=== PATIENT | male | born 1950 | race Caucasian/White ===

== ENCOUNTER 2017-08-25 04:24 | Emergency (ER) | payer BC, OTHER ==
--- NOTE | 2017-08-25 04:40 | PDOC ---
History of Present Illness - General Stated Complaint: CHEST PAIN Time Seen by Provider: 08/25/17 04:40 History Source: Patient Exam Limitations: No Limitations - History of Present Illness Initial Comments: 08/25/17 05:12 66-year-old male with a history of hypertension presents to the emergency department complaining of left-sided chest discomfort. Patient states he woke up diaphoretic from sleep at approximately 0300 hrs. patient states he was unable to find a comfortable resting physician and ended up sitting in a chair with a fan onto cool himself off. Patient went back to bed a few minutes later but woke up 2 hours later complaining of left-sided discomfort. Pain is described as 1/10 intermittent nonradiating pressure which subsided after approximately 10 minutes. Patient states when EMS arrived to his home, he has been completely pain-free as he is now in the emergency department. Patient denies headache, dizziness, lightheadedness, facial pains, nasal congestion, rhinorrhea, earaches, sore throat, neck pain/stiffness, back pain, shortness of breath, abdominal pains, flank pains, urinary symptoms, extremity numbness or tingling sensation. Patient denies previous similar symptoms patient denies taking anything for his discomfort. Presenting Symptoms: Chest Pain Past History - Past Medical History Allergies/Adverse Reactions: Allergies Allergy/AdvReac Type Severity Reaction Status Date / Time No Known Drug Allergies Allergy Verified 08/25/17 04:49 Home Medications: Ambulatory Orders Metoprolol Tartrate [Lopressor -] 100 mg PO DAILY 07/02/13 Pregabalin [Lyrica] 150 mg PO DAILY 07/02/13 Valsartan [Diovan] 320 mg PO DAILY 07/02/13 Docusate Sodium [Colace -] 100 mg PO BID #14 capsule 03/01/14 Dutasteride [Avodart] 0.5 mg PO DAILY 03/01/14 Nifedipine [Procardia Xl] 60 mg PO DAILY 03/01/14 Polyethylene Glycol 3350 [Miralax 255 gm Btl -] 17 gm PO DAILY #1 bottle Anemia: No Asthma: No Cancer: No Cardiac Disorders: No CVA: No COPD: No CHF: No Dementia: No Diabetes: No GI Disorders: No Disorders: No HTN: Yes Hypercholesterolemia: No Liver Disease: No Seizures: No Thyroid Disease: No - Suicide/Smoking/Psychosocial Hx Smoking Status: No Smoking History: Never smoked Have you smoked in the past 12 months: No Number of Cigarettes Smoked Daily: 0 Hx Alcohol Use: No Drug/Substance Use Hx: No Substance Use Type: None Hx Substance Use Treatment: No Cardiac Specific PMH - Complaint Specific PMHX Pacemaker: No Review of Systems - Review of Systems Able to Perform ROS?: Yes Comments:: 08/25/17 05:15 CONSTITUTIONAL: Absent: fever, chills, diaphoresis, generalized weakness, malaise, loss of appetite HEENT: Absent: rhinorrhea, nasal congestion, throat pain, throat swelling, difficulty swallowing, mouth swelling, ear pain, eye pain, visual Changes CARDIOVASCULAR: +LEFT SIDED CP/subsided prior to arriving to the ER Absent: loss of consciousness, palpitations, irregular heart rate, peripheral edema RESPIRATORY: Absent: cough, shortness of breath, dyspnea with exertion, orthopnea, wheezing, stridor, hemoptysis GASTROINTESTINAL: Absent: abdominal pain, abdominal distension, nausea, vomiting, diarrhea, constipation, melena, hematochezia GENITOURINARY: Absent: dysuria, frequency, urgency, hesitancy, hematuria, flank pain, genital pain MUSCULOSKELETAL: Absent: myalgia, arthralgia, joint swelling SKIN: Absent: rash, itching, pallor HEMATOLOGIC/IMMUNOLOGIC: Absent: easy bleeding, easy bruising, lymphadenopathy, frequent infections ENDOCRINE: Absent: unexplained weight gain, unexplained weight loss, heat intolerance, cold intolerance NEUROLOGIC: Absent: headache, focal weakness or paresthesias, dizziness, unsteady gait, seizure, mental status changes, bladder or bowel incontinence PSYCHIATRIC: Absent: anxiety, depression, suicidal or homicidal ideation, hallucinations. Is the patient limited Colombian proficient: No *Physical Exam - Vital Signs Last Vital Signs Temp Pulse Resp BP Pulse Ox 98.6 F 76 18 131/92 98 08/25/17 04:25 08/25/17 10:32 08/25/17 07:01 08/25/17 10:32 08/25/17 10:32 - Physical Exam Comments: 08/25/17 05:15 GENERAL: Well developed, well nourished. Awake and alert. No acute distress. HEENT: Normocephalic, atraumatic. PERRLA, EOMI. No conjunctival pallor. Sclera are non- icteric. Moist mucous membranes. Oropharynx is clear. NECK: Supple. Full ROM. No JVD. Carotid pulses 2+ and symmetric, without bruits. No thyromegaly. No lymphadenopathy. CARDIOVASCULAR: Regular rate and rhythm. No murmurs, rubs, or gallops. Distal pulses are 2+ and symmetric. PULMONARY: No evidence of respiratory distress. Lungs clear to auscultation bilaterally. No wheezing, rales or rhonchi. ABDOMINAL: Soft. Non-tender. Non-distended. No rebound or guarding. No organomegaly. Normoactive bowel sounds. MUSCULOSKELETAL Normal range of motion at all joints. No bony deformities or tenderness. No CVA tenderness. EXTREMITIES: No cyanosis. No clubbing. No edema. No calf tenderness. SKIN: Warm and dry. Normal capillary refill. No rashes. No jaundice. NEUROLOGICAL: Alert, awake, appropriate. Cranial nerves 2-12 intact. No deficits to light touch and temperature in face, upper extremities and lower extremities. No motor deficits in the in face, upper extremities and lower extremities. Normoreflexic in the upper and lower extremities. Normal speech. Toes are down- going bilaterally. Gait is normal without ataxia. PSYCHIATRIC: Cooperative. Good eye contact. Appropriate mood and affect. Heart Score/ECG Review - History History: Slightly suspicious - Electrocardiogram EKG: Normal - Age Age: >/= 65 - Risk Factors Risk Factors Heart Score: Yes Hx Hypertension Based on the list above the patient has:: 1-2 risk factors ED Treatment Course - LABORATORY CBC & Chemistry Diagram: 08/25/17 04:39 08/25/17 04:39 - ADDITIONAL ORDERS Additional order review: 08/25/17 04:39 RBC 4.36 MCV 87.9 MCHC 33.3 RDW 14.0 MPV 8.8 Neutrophils % 47.4 D Lymphocytes % 34.8 D Monocytes % 15.0 H Eosinophils % 1.6 Basophils % 1.2 - RADIOLOGY Radiology Studies Ordered: Category Date Time Status CHEST PA & LAT [RAD] Stat Radiology 08/25/17 04:41 Completed - Medications Given in the ED: ED Medications Discontinued Medications Generic Name Dose Route Start Last Admin Trade Name Freq PRN Reason Stop Dose Admin Aspirin 324 mg 08/25/17 04:41 08/25/17 05:23 Asa - PO 08/25/17 04:42 324 mg ONCE ONE Administration Sodium Chloride 1,000 mls @ 1,000 mls/hr 08/25/17 04:41 08/25/17 05:23 Normal Saline - IV 08/25/17 05:40 1,000 mls/hr ASDIR STA Administration Progress Note - Progress Note Progress Note: 0702hrs: Signed out to DENA Sutton Repeat Troponin Medical Decision Making - Medical Decision Making 08/25/17 06:38 66-year-old presents to the ER complaining of subsided left-sided chest pain after waking up diaphoretic at 0300 hrs. Negative troponin. We'll repeat troponin at 10 AM/6 hours. Patient has been advised to follow with cardiology for a stress test and echocardiogram. *DC/Admit/Observation/Transfer Diagnosis at time of Disposition: Chest pain Qualifiers: Chest pain type: unspecified Qualified Code(s): R07.9 - Chest pain, unspecified - Discharge Dispostion Disposition: AGAINST MEDICAL ADVICE Condition at time of disposition: Guarded - Referrals Referrals: Trace Hutchison MD [Staff Physician] - Call tomorrow Mathew López MD [Primary Care Provider] - - Patient Instructions Printed Discharge Instructions: DI for Chest Pain Additional Instructions: YOU ARE BEING SIGNED OUT AGAINST MEDICAL ADVICE WE ARE RECOMMENDING THAT YOU STAY FOR OBSERVATION TO RULE OUT HEART ATTACK A CAUSE OF YOUR SYMPTOMS RISKS OF NOT DOING THIS INCLUDE PLEASE FOLLOW UP WITH DR HUTCHISON SOON POSSIBLE - Post Discharge Activity
[2017-08-25] MEDS ORDERED: SODIUM CHLORIDE 1,000 ML IV STA (04:41)
[2017-08-25] MEDS ORDERED: ASPIRIN 81 MG CHEWABLE TABLETS PO ONE (04:41)
[2017-08-25 05:02] LABS: BASO % 1.2 % (0-2.0); EOS % 1.6 % (0-4.5); HEMATOCRIT 38.3 % (35.4-49); HEMOGLOBIN 12.8 GM/dL (11.7-16.9); LYMPH % 34.8 % (8-40); MCH 29.3 pg (25.7-33.7); MCHC 33.3 g/dl (32.0-35.9); MEAN CELL VOLUME 87.9 fl (80-96); MEAN PLT VOLUME 8.8 fl (7.5-11.1); NEUT % 47.4 % (42.8-82.8); PLATELET COUNT 205 K/MM3 (134-434); RBC 4.36 M/mm3 (4.00-5.60); WHITE BLOOD COUNT 4.1 K/mm3 (4.0-10.0)
[2017-08-25] MEDS ORDERED: ASPIRIN 81 MG CHEWABLE TABLETS ONE (05:17)
[2017-08-25 05:25] VITALS: TEMP 98.6; BMI 26.4
[2017-08-25 06:01] LABS: ALBUMIN 3.7 g/dl (3.4-5.0); ANION GAP 6 (8-16); BLOOD UREA NITROGEN 23 mg/dL (7-18); CALCIUM 8.6 mg/dL (8.5-10.1); CHLORIDE 98 mmol/L (98-107); CO2 29 mmol/L (21-32); CREATININE 1.4 mg/dL (0.7-1.3); GLUCOSE,RANDOM 120 mg/dL (74-106); POTASSIUM 3.8 mmol/L (3.5-5.1); SGOT/AST 48 U/L (15-37); SGPT/ALT 52 U/L (12-78); SODIUM 133 mmol/L (136-145)
[2017-08-25 06:05] LABS: ALK PHOS 47 U/L (45-117); BILIRUBIN,TOTAL 0.4 mg/dL (0.2-1.0)
--- NOTE | 2017-08-25 07:23 | PDOC ---
*Physical Exam - Vital Signs Last Vital Signs Temp Pulse Resp BP Pulse Ox 98.6 F 77 18 116/57 97 08/25/17 04:25 08/25/17 07:01 08/25/17 07:01 08/25/17 07:01 08/25/17 07:01 ED Treatment Course - LABORATORY CBC & Chemistry Diagram: 08/25/17 04:39 08/25/17 04:39 - ADDITIONAL ORDERS Additional order review: Laboratory Results 08/25/17 04:39 Sodium 133 L Potassium 3.8 Chloride 98 Carbon Dioxide 29 Anion Gap 6 L BUN 23 H Creatinine 1.4 H Creat Clearance w eGFR 50.86 Random Glucose 120 H Calcium 8.6 Total Bilirubin 0.4 D AST 48 H ALT 52 D Alkaline Phosphatase 47 D Creatine Kinase 687 H Creatine Kinase Index 1.6 CK-MB (CK-2) 11.647 H Troponin I 0.03 D Total Protein 8.0 Albumin 3.7 08/25/17 04:39 RBC 4.36 MCV 87.9 MCHC 33.3 RDW 14.0 MPV 8.8 Neutrophils % 47.4 D Lymphocytes % 34.8 D Monocytes % 15.0 H Eosinophils % 1.6 Basophils % 1.2 - Medications Given in the ED: ED Medications Discontinued Medications Generic Name Dose Route Start Last Admin Trade Name Freq PRN Reason Stop Dose Admin Aspirin 324 mg 08/25/17 04:41 08/25/17 05:23 Asa - PO 08/25/17 04:42 324 mg ONCE ONE Administration Sodium Chloride 1,000 mls @ 1,000 mls/hr 08/25/17 04:41 08/25/17 05:23 Normal Saline - IV 08/25/17 05:40 1,000 mls/hr ASDIR STA Administration Medical Decision Making - Medical Decision Making 08/25/17 09:34 Signout received from VANDANA Escobar. Briefly, this is a 66 year old male with a history of HTN on multiple agents who presented to the ED after waking up with chest pressure and diaphoresis at 3am. Pain resolved and has not recurred during his 5 hour observation period here. He has had two troponins which are negative, however CK is mildly elevated at 687 (CK-MB 11.6). EKG shows NSR with non-specific T wave changes. CXr shows no acute process. The patient is currently pain-free. He reports that he follows with Dr. Hutchison. Discussed with Dr. Hutchison; patient had persantine MIBI 05/03. Dilated LV, normal perfusion, EF 50%. Does request that the patient stay for telemetry/ observation/third enzyme. Notes that his CK is always elevated and that he has seen Dr. Jayne Tavarez about this in the past. Patient refuses to stay and wishes to sign out AGAINST MEDICAL ADVICE. He understands that he has not completed the requisite testing to rule out AR. He understands that he is risking heart attack, heart failure, and . He states that he plans to follow up with Dr. Hutchison tomorrow. *DC/Admit/Observation/Transfer Diagnosis at time of Disposition: Chest pain Qualifiers: Chest pain type: unspecified Qualified Code(s): R07.9 - Chest pain, unspecified - Discharge Dispostion Disposition: AGAINST MEDICAL ADVICE Condition at time of disposition: Guarded Admit: No - Referrals Referrals: Mathew López MD [Primary Care Provider] - Trace Hutchison MD [Staff Physician] - Call tomorrow - Patient Instructions Printed Discharge Instructions: DI for Chest Pain Additional Instructions: YOU ARE BEING SIGNED OUT AGAINST MEDICAL ADVICE WE ARE RECOMMENDING THAT YOU STAY FOR OBSERVATION TO RULE OUT HEART ATTACK A CAUSE OF YOUR SYMPTOMS RISKS OF NOT DOING THIS INCLUDE PLEASE FOLLOW UP WITH DR HUTCHISON SOON POSSIBLE - Post Discharge Activity
[2017-08-25 10:34] VITALS: BP 131/92; PULSE 76
--- NOTE | 2017-08-25 11:31 | EKG ---
Test Reason : Blood Pressure : / mmHG Vent. Rate : 074 BPM Atrial Rate : 074 BPM P-R Int : 190 ms QRS Dur : 106 ms QT Int : 416 ms P-R-T Axes : 040 -20 -08 degrees QTc Int : 461 ms POOR DATA QUALITY, INTERPRETATION MAY BE ADVERSELY AFFECTED NORMAL SINUS RHYTHM MINIMAL VOLTAGE CRITERIA FOR LVH, MAY BE NORMAL VARIANT NONSPECIFIC T WAVE ABNORMALITY PROLONGED QT ABNORMAL ECG WHEN COMPARED WITH ECG OF 02-JUL-2013 23:36, VENT. RATE HAS INCREASED BY 27 BPM NONSPECIFIC T WAVE ABNORMALITY NOW EVIDENT IN LATERAL LEADS Confirmed by DOROTHY HUTCHISON MD ([id number]) on 08/25/2017 11:30:55 AM Referred By: Confirmed By:DOROTHY HUTCHISON MD
== END 2017-08-25 10:34 | disposition left against medical advice (07) ==
LOC: JER 04:24
PROC: 3E0337Z Introduction of Electrolytic and Water Balance Substance into Peripheral Vein, Percutaneous Approach (ICD-10-PCS; principal; 2017-08-25)
DX: R07.89 Other chest pain (principal); I10 Essential (primary) hypertension
CPT/HCPCS: 36415; 71046-TC; 80053; 82550; 82553; 84484; 85025; 93005; 93010; 99284-25

== ENCOUNTER 2018-11-17 07:08 | Day surgery (SDC) | payer BC, OTHER ==
[2018-11-14 17:48] VITALS: BMI 26.4
[2018-11-17] MEDS ORDERED: DEXAMETHASONE SOD PHOSPHATE 4 MG/1 ML VIAL ONE (09:25)
[2018-11-17] MEDS ORDERED: PROPOFOL 20 ML ONE ×2 (09:26)
[2018-11-17] MEDS ORDERED: ePHEDrine SULFATE 50 MG/1 ML AMPULE ONE (09:49)
[2018-11-17] MEDS ORDERED: ONDANSETRON 4 MG/2 ML VIAL IVPUSH PRN (10:02)
--- NOTE | 2018-11-17 10:20 | OP ---
Operative Note - Note: Operative Date: 11/17/18 Pre-Operative Diagnosis: bph Operation: traqnsurethral resection and vaporization of the prostate with bipolar system Post-Operative Diagnosis: Same as Pre-op Surgeon: Yanick Rodriguez Anesthesia: General Specimens Removed: prostatic chips Estimated Blood Loss (mls): 10 Drains & Tubes with Location: [address] Operative Report Dictated: Yes
[2018-11-17] MEDS ORDERED: oxyCODONE HCL 5 MG TABLET PO PRN (11:02)
[2018-11-17] MEDS ORDERED: LACTATED RINGERS SOLUTION 1,000 ML IV SCH (11:15)
[2018-11-17 12:17] VITALS: BP 137/98; PULSE 69; TEMP 97.6
--- NOTE | 2018-11-17 22:36 | OP ---
DATE OF OPERATION: 11/17/2018 PREOPERATIVE DIAGNOSIS: Benign prostatic hypertrophy. POSTOPERATIVE DIAGNOSIS: Benign prostatic hypertrophy. PROCEDURE: Transurethral resection and vaporization of the prostate utilizing bipolar system. ATTENDING: Yanick Davis MD ANESTHESIA: General. DESCRIPTION OF OPERATION: The patient was brought in the operating room, placed in supine position on the operating room table. Anesthesia and preoperative antibiotics were administered without complications. Patient was then placed in the dorsal lithotomy position and prepped and draped in the usual sterile manner. A resectoscope was placed under visualization into the bladder. The bladder was investigated and noted to have no evidence of stones or neoplasm. A 3+ obstructive prostate was noted. Resection of the prostate in order to debulk the prostate was performed initially. The margins of the resection were the bladder neck proximally and the verumontanum distally. The resection was performed in a 360-degree fashion. The resection was taken down to the level of the pseudocapsule of the prostate. Once this was performed, all prostatic chips were evacuated from the bladder utilizing the [employer] evacuator. At this point, the working element, which had been the loop, was changed to a button. Vaporization and cauterization was then ensured utilizing the button element of the bipolar system. Residual tissue was vaporized, and excellent hemostasis was attained within the prostatic fossa. The margins of the vaporization and cauterization were the bladder neck proximally and the verumontanum distally. This was done again in a 360-degree fashion. Excellent hemostasis was attained. The bladder was investigated and noted to have no evidence of residual prostatic tissue. There was no evidence of perforation of the bladder. The abdomen was soft on examination during the procedure. With excellent hemostasis, the resectoscope was removed, and a Dill catheter placed, 30 mL were inflated into the balloon of the catheter and placed on light traction. Excellent drainage was noted which was light pink in color. The disposition of the patient was to the recovery room. The catheter had been placed to straight drainage. The patient will be observed in the recovery room and the postop area. If the patient continues to do well, he will be discharged home. YANICK DAVIS M.D. [id number]
--- NOTE | 2018-11-18 17:01 | PATH ---
Surgical Pathology Report Patient Name: TAYLOR NUR [facility]. Rec. #: [id number] /Age/Gender: 1950 (Age: 67) / M Account: [id number] Location: [facility] SURGICAL Taken: 11/17/2018 Received: 11/17/2018 Reported: 11/18/2018 Physicians: Yanick Rodriguez Specimen(s) Received PROSTATE CHIPS Clinical History BPH Final Diagnosis PROSTATE CHIPS, TRANSURETHRAL RESECTION OF PROSTATE: BENIGN PROSTATIC TISSUE WITH CHRONIC INFLAMMATION, FOCAL CYSTIC CHANGES, GLANDULAR AND STROMAL HYPERPLASIA. Electronically Signed Claudette Echols M.D. Gross Description Received in formalin labeled "prostate chips," is a 2 g, 3.5 x 3.3 x 0.4 cm aggregate of wyatt, irregular, firm to rubbery portions of tissue, consistent with prostate chips. The specimen is entirely submitted in 2 cassettes. /11/17/2018 saudi/11/17/2018
== END 2018-11-17 12:35 | disposition home or self-care (01) ==
LOC: JASU-SURG 07:08
PROVIDERS: ATTEND Urology
PROC: 0VT08ZZ Resection of Prostate, Via Natural or Artificial Opening Endoscopic (ICD-10-PCS; principal; 2018-11-17 09:00)
DX: N40.1 Benign prostatic hyperplasia with lower urinary tract symptoms (principal); N13.8 Other obstructive and reflux uropathy
CPT/HCPCS: 88305-TC; 94760